=== PATIENT | male | born 1970 | race Caucasian/White ===

== ENCOUNTER 2019-05-28 19:20 | Emergency (ER) | payer MEDICARE ==
[2019-05-28] MEDS ORDERED: TETRACAINE 0.5% STERI-UNIT SOL OP STA (19:45)
[2019-05-28 19:47] VITALS: O2SAT 98
[2019-05-28] MEDS ORDERED: Fluor-I-Strip/Ful-Flo OP ONE ×2 (19:51→19:52)
--- NOTE | 2019-05-28 19:51 | ERPHSYRPT ---
- History of Present Illness Time Seen by Provider: 05/28/19 19:35 Source: patient Exam Limitations: no limitations Physician History: left eye pain after his bird poked his left eye. Timing/Duration: hour(s) (3) Location: left eye Severity: severe Apparent Injury: yes Associated Symptoms: pain, sensitivity to light, redness, foreign body sensation , blurred vision, No burning, No itching, No matting, No eyelid swelling, No decreased vision, No double vision Visual Assistive Devices: None Chemical Exposure: No Trauma: Yes (pet bird hit his left eye) Welding Arc/Tanning Bed Exposure: No Allergies/Adverse Reactions: shanks Allergy (Verified 05/28/19 19:49) Swelling of Tongue and Lips Penicillins Allergy (Verified 05/28/19 19:49) Swelling of Face Home Medications: Loratadine 10 mg [Claritin 10 mg] 10 mg PO DAILY 05/28/19 [History] Omeprazole 10 mg PO DAILY 05/28/19 [History] Hx Tetanus, Diphtheria Vaccination/Date Given: No - Review of Systems Constitutional: No Fever, No Chills Eyes: No Symptoms, Eye Pain, Eye Redness, Photophobia, Tearing, Foreign Body Sensation, No Itchy, No Vision Changes, No Double Vision Ears, Nose, & Throat: No Symptoms, No Ear Pain, No Nose Pain, No Nose Discharge , No Epistaxis, No Mouth Pain, No Mouth Swelling, No Throat Pain Respiratory: No Cough, No Dyspnea Cardiac: No Chest Pain, No Edema, No Syncope Abdominal/Gastrointestinal: No Abdominal Pain, No Nausea, No Vomiting, No Diarrhea Genitourinary Symptoms: No Dysuria Musculoskeletal: No Back Pain, No Neck Pain Skin: No Rash Neurological: No Dizziness, No Focal Weakness, No Sensory Changes Psychological: No Symptoms Endocrine: No Symptoms Hematologic/Lymphatic: No Easy Bleeding, No Easy Bruising All Other Systems: Reviewed and Negative - Past Medical History Pertinent Past Medical History: Yes - Nursing Vital Signs Nursing Vital Signs: Initial Vital Signs Temperature 98.3 F 05/28/19 19:27 Pulse Rate 53 L 05/28/19 19:27 Respiratory Rate 18 05/28/19 19:27 Blood Pressure 136/89 05/28/19 19:27 O2 Sat by Pulse Oximetry 98 05/28/19 19:27 Pain Scale Pain Intensity 3 - Physical Exam General Appearance: no apparent distress, alert Vision Acuity Degree Evaluation Phase: Uncorrected Vision Acuity Right Eye: 20/50 Vision Acuity Left Eye: 20/100 Eye Exam: right eye: normal inspection, left eye: conjunctival inflammation, corneal abrasion (uptake of fluoroscein from 6'oclock to 7 o'clock), bilateral eye: PERRL, EOMI Ears, Nose, Throat Exam: normal ENT inspection, TMs normal, pharynx normal Neck Exam: normal inspection, non-tender, supple, full range of motion Respiratory Exam: normal breath sounds, chest tenderness, lungs clear, respiratory distress, airway intact Cardiovascular Exam: regular rate/rhythm, normal heart sounds, normal peripheral pulses, capillary refill <2 sec Extremity Exam: normal inspection, normal range of motion Neurologic: alert, oriented x 3, cooperative, heel sprayer first II-XII nml as tested, normal mood/affect, sensation nml, No motor deficits Skin Exam: normal color, warm, dry, No rash Lymphatic: No adenopathy SpO2 Interpretation: normal O2 Delivery: Room Air Ordered Tests: Medication Summary Discontinued Medications Generic Name Dose Route Start Last Admin Trade Name Freq PRN Reason Stop Dose Admin Eye Irrigation Solution Confirm 05/28/19 19:52 Eye-Stream Solution Administered 05/28/19 19:53 Dose 30 ml .ROUTE .STK-MED ONE Fluorescein Sodium 1 mg 05/28/19 19:51 Kzkiq-P-Nzgjv/Ful-Van OP 05/28/19 19:52 STAT ONE Fluorescein Sodium Confirm 05/28/19 19:52 Ywrdt-F-Ravip/Ful-Van Administered 05/28/19 19:53 Dose 1 mg OP .STK-MED ONE Tetracaine HCl 4 ml 05/28/19 19:45 Tetracaine 0.5% Steri-Unit Illi OP 05/28/19 19:46 STAT STA Tetracaine HCl Confirm 05/28/19 19:52 Tetracaine 0.5% Steri-Unit Lili Administered 05/28/19 19:53 Dose 4 ml OP .STK-MED ONE - Progress Progress: improved Progress Note: 05/28/19 20:02 Pain has resolved after Tetracaine drops. Visual mullen intact bilaterally. - Departure Departure Disposition: Home, Extended Care Facility Clinical Impression: Elevated blood pressure reading without diagnosis of hypertension Left corneal abrasion Qualifiers: Encounter type: initial encounter Qualified Code(s): S05.02XA - Injury of conjunctiva and corneal abrasion without foreign body, left eye, initial encounter Condition: Good Critical Care Time: No Referrals: VY LIAO MD [Primary Care Provider] - 05/29/19 (Follow-up with your security incident response specialist on 05/29/2019 to follow-up the corneal abrasion) Instructions: Corneal Abrasion (DC), DASH Diet, Tdap Vaccine Additional Instructions: You have a scratch on your left cornea. Use drops as directed. Wear sunglasses over the next two days as you may still be light sensitive. It is important to follow-up with your security incident response specialist on 05/29/2019. If any worse pain or loss of vision, follow-up immediately in the nearest emergency department for re-evaluation. Prescriptions: Etodolac 400 mg [Lodine 400 mg] 400 mg PO BID PRN PRN #20 tablet PRN Reason: Pain Polymyxin B Sulf/Trimethoprim [Polytrim Eye Drops] 2 drop OP QID 7 Days #1 bottle Soft Lens Rinse,Store Solution [Saline Sensitive Eyes] 2 drops MC QID 5 Days #1 bottle
[2019-05-28] MEDS ORDERED: Eye-Stream Solution ONE (19:52)
[2019-05-28] MEDS ORDERED: TETRACAINE 0.5% STERI-UNIT SOL OP ONE (19:52)
[2019-05-28] MEDS ORDERED: Adacel Vial IM ONE ×2 (20:26→20:37)
[2019-05-28] MEDS ORDERED: Eye-Stream Solution OP ONE (20:44)
[2019-05-28] MEDS ORDERED: Erythromycin 3.5 GM OPHTH. OP ONE (20:59)
[2019-05-28] MEDS ORDERED: Erythromycin 1 GM ONE (21:01)
[2019-05-28 21:23] VITALS: BP 129/82; PULSE 48
== END 2019-05-28 21:10 | disposition home or self-care (01) ==
LOC: ED 19:20
DX: S05.02XA Injury of conjunctiva and corneal abrasion without foreign body, left eye, initial encounter (principal); W61.99XA Other contact with other birds, initial encounter
CPT/HCPCS: 90471; 90715; 99283; A9270-GY

== ENCOUNTER 2023-10-24 18:04 | Emergency (ER) | payer MEDICARE ==
[2023-10-24 19:31] LABS: BASOPHIL % 0.4 % (0.0-0.4); Basophil (Absolute #) 0.02 x10^3/uL (0-0.4); Eosinophil % 2.1 % (0.00-5.0); Hematocrit 36.8 % (42-50); Hemoglobin 12.3 g/dL (12.5-18.0); IMMATURE GRAN # 0.01 x10^3u/L (0.00-0.03); IMMATURE GRAN % 0.2 % (0.00-0.4); Lymphocyte (Absolute #) 0.92 x10^3/uL (1.0-4.6); Lymphocytes % 19.4 % (24.0-44.0); Mean Cell Volume 83.6 fL (78-100); Mean Corpuscular Hgb Concent. 33.4 g/dL (32-36); Monocytes % 6.3 % (0.0-12.0); Neutrophil % 71.6 % (36.0-66.0); Platelet Count 193 x10^3/uL (150-450); Red Cell Distribution Width 12.9 % (11.5-14.0); White Blood Count 4.8 x10^3/uL (4.0-10.5)
[2023-10-24 19:46] LABS: ALBUMIN 3.8 g/dL (3.5-5.0); ANION GAP 9.9 MEQ/L (5-15); BILIRUBIN,TOTAL 0.2 mg/dL (0.2-1.3); Calcium 8.9 mg/dL (8.4-10.2); Creatinine 1 0.65 mg/dL (0.66-1.25); EST GLOMERULAR FILTRATION RATE 114.8 ML/MIN; Potassium 3.4 mmol/L (3.5-5.1); Total Protein 6.8 g/dL (6.3-8.2)
[2023-10-24 20:08] VITALS: O2SAT 97
--- NOTE | 2023-10-24 20:26 | ERPHSYRPT ---
- History of Present Illness Time Seen by Provider: 10/24/23 19:24 Source: patient Exam Limitations: no limitations Patient Subjective Stated Complaint: C/O right lower leg swelling. Patient states he noticed an "ache" to "the top of my right tibia" on 10/20/23. Patient noticed the swelling on 10/21/23. On Saturday the swelling was just distal to the knee and by 10/23/23 it was down to the ankle. Describes current pain as a "vague tenderness" Triage Nursing Assessment: Patient ambulated back to ER without difficulties. He is alert and oriented. No SOB. RLE is noticably larger/more swollen than the LLE. RLE is red and warm to touch. No skin abrasions, or openings noted to RLE. Right pedal pulse is present. Physician History: 52 years old male with history of GERD, ADD presented in the ER with chief complaint of right leg swelling. Patient reports he noticed some ache in the right upper tibial area almost 5 days ago and gradually increasing swelling and redness now extending into right ankle area. No difficulty movements of the ankle or knee joints. Complaining of minimal dull aching pain. He has been using ibuprofen, intermittent ice application, elevation and compression stock ing with no significant relief. Denies any difficulty breathing, no history of DVT/PE. Denies any long travel. Denies any trauma or previous surgery to her right lower extremity. No fever or chills reported. Minimal discomfort/ache with ambulation. Allergies/Adverse Reactions: shanks Allergy (Verified 10/24/23 18:25) Swelling of Tongue and Lips Penicillins Allergy (Verified 10/24/23 18:25) Swelling of Face Home Medications: Loratadine 10 mg [Claritin 10 mg] 10 mg PO DAILY 05/28/19 [History] Omeprazole 10 mg PO DAILY 05/28/19 [History] Lisdexamfetamine Dimesylate [Vyvanse] 1 tab PO DAILY 10/24/23 [History] Hx Tetanus, Diphtheria Vaccination/Date Given: Yes Hx Influenza Vaccination/Date Given: Yes Hx Pneumococcal Vaccination/Date Given: No Immunizations Up to Date: Yes Travel Risk - International Travel Have you traveled outside of the country in past 3 weeks: No - Coronavirus Screening Are you exhibiting any of the following symptoms?: No Close contact with a COVID-19 positive Pt in past 14-21 Days: No - Vaccine Status Have you recieved a Covid-19 vaccination: Yes 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 - Social History Smoking Status: Former smoker Exposure to second hand smoke: No Drug Use: none Patient Lives Alone: No - Nursing Vital Signs Nursing Vital Signs: Initial Vital Signs Pulse Rate 60 10/24/23 18:24 Respiratory Rate 17 10/24/23 18:24 O2 Sat by Pulse Oximetry 97 10/24/23 18:24 Pain Scale Pain Intensity 1 - Physical Exam General Appearance: no apparent distress, alert Eye Exam: PERRL/EOMI Ears, Nose, Throat Exam: normal ENT inspection Neck Exam: normal inspection, full range of motion Respiratory Exam: normal breath sounds, lungs clear Cardiovascular Exam: regular rate/rhythm, normal heart sounds Back Exam: normal range of motion Extremity Exam: inflammation, swelling (Diffuse swelling right lower leg from tibial tuberosity to just above right ankle. Mild erythema. Mild increase in temperature. Minimal tenderness on the medial side of the tibia/calf. Distal neurovascular well intact. Intact range of motion at right knee and ankle witho ut any swelling or tende) Neurologic Exam: alert, oriented x 3, cooperative Skin Exam: normal color SpO2 Interpretation: normal SpO2: 97 O2 Delivery: Room Air Ordered Tests: Active Orders 24 hr Category Date Time Status IV Insertion STAT Care 10/24/23 19:21 Active LOWER LEG Stat Exams 10/24/23 20:16 Taken VENOUS UNILAT/LIMITED EXTREMIT [US] Stat Exams 10/24/23 20:03 Taken BLOOD CULTURE Stat Lab 10/24/23 19:18 Received CBC W DIFF Stat Lab 10/24/23 19:18 Completed CMP Stat Lab 10/24/23 19:18 Completed D-DIMER QUANTITATIVE Stat Lab 10/24/23 19:18 Completed Lactic Acid Stat Lab 10/24/23 19:19 Completed PROCALCITONIN Stat Lab 10/24/23 19:18 Completed Lab/Rad Data: Laboratory Result Diagrams 10/24/23 19:18 10/24/23 19:18 Laboratory Results 10/24/23 10/24/23 10/24/23 Range/Units 19:19 19:18 19:18 WBC (4.0-10.5) x10^3/uL RBC (4.1-5.6) x10^6/uL Hgb (12.5-18.0) g/dL Hct (42-50) % MCV (78-100) fL MCH (26-32) pg MCHC (32-36) g/dL RDW (11.5-14.0) % Plt Count (150-450) x10^3/uL MPV (7.5-11.0) fL Gran % (36.0-66.0) % Immature Gran % (Auto) (0.00-0.4) % Nucleat RBC Rel Count (0.00-0.1) % Eos # (Auto) (0-0.5) x10^3/uL Immature Gran # (Auto) (0.00-0.03) x10^3u/L Absolute Lymphs (auto) (1.0-4.6) x10^3/uL Absolute Monos (auto) (0.0-1.3) x10^3/uL Absolute Nucleated RBC (0.00-0.01) x10^3u/L Lymphocytes % (24.0-44.0) % Monocytes % (0.0-12.0) % Eosinophils % (0.00-5.0) % Basophils % (0.0-0.4) % Absolute Granulocytes (1.4-6.9) x10^3/uL Basophils # (0-0.4) x10^3/uL D-Dimer 0.62 H* (0.0-0.50) mg/L Sodium (137-145) mmol/L Potassium (3.5-5.1) mmol/L Chloride (98-107) mmol/L Carbon Dioxide (22-30) mmol/L Anion Gap (5-15) MEQ/L BUN (9-20) mg/dL Creatinine (0.66-1.25) mg/dL Estimated GFR ML/MIN Glucose (74-106) mg/dL Lactic Acid 0.7 (0.4-2.0) Calcium (8.4-10.2) mg/dL Total Bilirubin (0.2-1.3) mg/dL AST (17-59) U/L ALT (0-50) U/L Alkaline Phosphatase (38-126) U/L Serum Total Protein (6.3-8.2) g/dL Albumin (3.5-5.0) g/dL Procalcitonin 0.078 (0.030-0.080) ng/mL 10/24/23 10/24/23 Range/Units 19:18 19:18 WBC 4.8 (4.0-10.5) x10^3/uL RBC 4.40 (4.1-5.6) x10^6/uL Hgb 12.3 L (12.5-18.0) g/dL Hct 36.8 L (42-50) % MCV 83.6 (78-100) fL MCH 28.0 (26-32) pg MCHC 33.4 (32-36) g/dL RDW 12.9 (11.5-14.0) % Plt Count 193 (150-450) x10^3/uL MPV 9.0 (7.5-11.0) fL Gran % 71.6 H (36.0-66.0) % Immature Gran % (Auto) 0.2 (0.00-0.4) % Nucleat RBC Rel Count 0.0 (0.00-0.1) % Eos # (Auto) 0.10 (0-0.5) x10^3/uL Immature Gran # (Auto) 0.01 (0.00-0.03) x10^3u/L Absolute Lymphs (auto) 0.92 L (1.0-4.6) x10^3/uL Absolute Monos (auto) 0.30 (0.0-1.3) x10^3/uL Absolute Nucleated RBC 0.00 (0.00-0.01) x10^3u/L Lymphocytes % 19.4 L (24.0-44.0) % Monocytes % 6.3 (0.0-12.0) % Eosinophils % 2.1 (0.00-5.0) % Basophils % 0.4 (0.0-0.4) % Absolute Granulocytes 3.40 (1.4-6.9) x10^3/uL Basophils # 0.02 (0-0.4) x10^3/uL D-Dimer (0.0-0.50) mg/L Sodium 134 L (137-145) mmol/L Potassium 3.4 L (3.5-5.1) mmol/L Chloride 101 (98-107) mmol/L Carbon Dioxide 26 (22-30) mmol/L Anion Gap 9.9 (5-15) MEQ/L BUN 11 (9-20) mg/dL Creatinine 0.65 L (0.66-1.25) mg/dL Estimated GFR 114.8 ML/MIN Glucose 81 (74-106) mg/dL Lactic Acid (0.4-2.0) Calcium 8.9 (8.4-10.2) mg/dL Total Bilirubin 0.20 (0.2-1.3) mg/dL AST 29 (17-59) U/L ALT 23 (0-50) U/L Alkaline Phosphatase 70 (38-126) U/L Serum Total Protein 6.8 (6.3-8.2) g/dL Albumin 3.8 (3.5-5.0) g/dL Procalcitonin (0.030-0.080) ng/mL - Progress Progress: unchanged, re-examined Progress Note: 10/24/23 20:48 52 years old is evaluated for right lower leg swelling and redness without any fall or trauma and minimal ache. Patient has no fever or chills. No history of DVT/PE. Has mild increased temperature as compared to the left lower leg. No inguinal lymph adenopathy. Patient is not in any distress, did not want any pain medications. Workup showed normal white count, fairly unremarkable chemistries, normal lactate and procalcitonin. I have obtained x-rays lower leg which are negative for acute fracture/any other osseous finding reviewed by me, official report is pending. Patient has a positive D-dimer and ultrasound is obtained which is negative per preliminary report, official report is pending. I believe patient has cellulitis. I will start him on doxycycline. No signs or concern for tick bite. Recommended taking Tylenol ibuprofen as needed along with doxycycline and outpatient follow-up. Discussed signs symptoms of worsening needing return to ER which he seems understanding. Stable for discharge. 10/24/23 20:51 Counseled pt/family regarding: lab results, diagnosis, need for follow-up, rad results Medical Desision Making - Diagnostic Testing Diagnostic test were ordered, analyzed, and reviewed by me: Yes Radiological Interpretation: Interpreted by me, Reviewed by me - Risk of complications The pt has a mod risk of morbidity or mortality based on: Need for prescription drug management - Departure Departure Disposition: Home Clinical Impression: Cellulitis of leg, right Condition: Stable Critical Care Time: No Referrals: VY LIAO MD [Primary Care Provider] - Follow up with PCP 2 days Instructions: Cellulitis (Skin Infection), Adult ED Additional Instructions: Take Tylenol/ibuprofen as needed. Keep it elevated. Follow-up with primary care for reevaluation. Return to ER for increased swelling redness, difficulty ambulation, worsening pain or if develop fever chills/swelling of knee ankle with restriction of their movements etc. Prescriptions: Doxycycline Hyclate 100 mg [Vibramycin 100 MG] 100 mg PO BID #14 tab
[2023-10-24] MEDS ORDERED: Vibramycin 100 MG ONE (20:51)
[2023-10-24] MEDS: Vibramycin 100 MG PO ONE (20:52)
[2023-10-24 20:57] VITALS: BP 135/84; PULSE 76; RESP 16
--- NOTE | 2023-10-25 08:39 | XRAY ---
Indication: Right leg swelling. Two-dimensional sonogram and color Doppler imaging major venous vessels right leg performed. Comparison: None No thrombus seen in examined deep venous vessels right leg including greater saphenous vein. Veins demonstrate normal compressibility. Venous waveforms are normal with and without augmentation. Impression: Right leg negative for DVT. Comment: Preliminary report was given.
--- NOTE | 2023-10-25 08:54 | XRAY ---
Indication: Pain and swelling. Comparison: None 2 view right lower leg demonstrates medial ankle soft tissue swelling and small posterior heel spur. No other bony, articular, or soft tissue abnormalities.
== END 2023-10-24 21:00 | disposition home or self-care (01) ==
LOC: ED 18:04
DX: L03.115 Cellulitis of right lower limb (principal); M79.661 Pain in right lower leg; Z79.899 Other long term (current) drug therapy
CPT/HCPCS: 36000; 36415; 73590; 80053; 83605; 84145; 85025; 85379; 87040; 93971; 99284; A9270-GY